=== PATIENT | female | born 1965 | race Caucasian/White ===

== ENCOUNTER 2023-06-25 02:42 | Emergency (ER) | payer OTHER, SELFPAY ==
[2023-06-25] VITALS (14 sets, daily range): BP systolic 111–149; BP diastolic 48–97; BMI 31.9
[2023-06-25 03:58] LABS: % Basophils 1.1 % (0-2); % Immature Granulocytes 0.2 % (0-0.5); % Lymphocytes 37.2 % (20.5-51.1); % Monocytes 7.5 % (1.7-9.3); Absolute Basophils 0.1 10^3/uL (0-0.2); Absolute Eosinophils 0.3 10^3/uL (0-0.7); Absolute Lymphocytes 3.1 10^3/uL (1.2-3.4); Absolute Monocytes 0.6 10^3/uL (0.1-0.6); Absolute Neutrophils 4.3 10^3/uL (1.4-6.5); Hematocrit 34.4 % (37.0-47.0); Hemoglobin 11.2 g/dL (12.0-16.0); Mean Corp Hgb Conc. 32.6 g/dL (33.0-37.0); Mean Corpuscular Hgb 28.3 pg (27.0-31.0); Mean Corpuscular Volume 86.9 fL (81.0-99.0); Mean Platelet Volume 11.3 fL (7.4-10.4); Nucleated Red Blood Cells % 0 %; Platelet Count 189 10^3/uL (130-400); Red Blood Cell Count 3.96 10^6/uL (4.20-5.40); Red Cell Dist. Width 14.5 % (11.5-14.5); White Blood Cell Count 8.4 10^3/uL (4.8-10.8)
[2023-06-25 04:14] LABS: ALT (SGPT) 24 U/L (0-35); AST (SGOT) 31 U/L (14-36); Albumin 3.5 g/dl (3.5-5.0); Alkaline Phosphatase 93 U/L (38-126); Blood Urea Nitrogen 17 mg/dl (7-17); Calcium 8.4 mg/dl (8.4-10.2); Carbon Dioxide 22 mmol/L (22-30); Chloride 110 mmol/L (98-107); Estimated Creatinine Clearance 92 ml/min; Glucose 133 mg/dl (70-99); Potassium 3.5 mmol/L (3.5-5.1); Sodium 145 mmol/L (135-145); Total Bilirubin 0.4 mg/dl (0.2-1.3); Total Protein 5.8 g/dl (6.3-8.2); eGFR > 60.00
[2023-06-25 04:26] LABS: Troponin I < 0.012 ng/ml
[2023-06-25] MEDS: ZOFRAN 4 MG IV (07:26)
[2023-06-25 08:16] LABS: Troponin I < 0.012 ng/ml
--- NOTE | 2023-06-25 08:18 | ED.GENMED ---
History of Present Illness
General
Chief Complaint: Breathing Problem
Source: patient
Exam Limitations: none
Time Seen by Provider: 06/25/23 06:03
Nursing documentation reviewed up to this point in time: agreed with
Travel History
Have you had any contact with someone who has COVID-19?: Yes
Comment: pt thinks so
Do you have any symptoms of coronavirus? Fever > 100 degrees, chills, cough, shortness of breath, sore throat, loss of taste or smell, muscle aches, or headache?: No
History of Present Illness
History of Present Illness:
57-year-old female with a past medical history of alcohol abuse, diabetes, neuropathy who presents to the emergency department for evaluation of chest pain. Patient reportedly initially presented last night for pain in her feet; apparently she was
displeased with the wait time and left the waiting room here and walked to a gas station nearby. There she called EMS to come to the hospital and EMS reports that she told them she had chest pain although she seems to be complaining more of pain in
her feet on my assessment. When asked specifically about chest pain she says 'yeah I am having some pain in my chest.' She says that she has had it since yesterday. She says that it usually improves when she drinks beer. She says she feels some
mild nausea. No vomiting. No abdominal pain. She says she feels some mild shortness of breath. She says she has pain in her feet and she is requesting her dose of Neurontin�she says she has not been able to take it for a few weeks because
someone stole her medication.
Past History
Past History
ED Past Medical History: NIDDM
ED Past Surgical History: Cholecystectomy and
Social History
Tobacco: Non-smoker
Alcohol: Daily
Review of Systems
Review of Systems
All Other Systems: ROS reviewed and negative except as documented in HPI and ROS
Constitutional: Denies fever
Respiratory: Reports trouble breathing
Cardiac: Reports chest pain
ABD/GI: Reports nausea; Denies abdominal pain, vomiting or diarrhea
: Denies flank pain
Musculoskeletal: Reports other (Bilateral foot pain); Denies neck pain or back pain
Neurological: Denies headache
Phy Exam
Physical Exam
Physical Exam:
General: Sleeping in the bed wakes to voice; she appears very comfortable and is not in any distress
Head: Normocephalic, atraumatic
Eyes: Conjunctiva normal, sclera anicteric
Throat: Airway intact, handling secretions
Neck: Trachea midline, supple without meningismus
Lungs: Clear to auscultation bilaterally, no wheezing, rales, rhonchi
Heart: Regular rate and rhythm, no murmurs, gallops, or rubs
Abd: Soft, non distended, nontender
Neuro: Cranial nerves grossly intact, speech fluid
Skin: no rash
Extremities: No edema in extremities, equal pulses in all extremities
Scores
Heart Failure Risk
Heart Failure Risk Score: Not Applicable
Heart Score for Chest Pain Patients
STEMI patient?: No
History: Slightly or Non-Suspicious
ECG: Normal
Age: >45 - <65 years
Risk Factors: 1 or 2 Risk Factors
Troponin: </= Normal Limit
Heart Score for Chest Pain Patients: 2
Heart Score Risk: 2.5% MACE over next 6 weeks
Withdrawal Assessment of Alcohol
Withdrawal Assessment Completed?: Not applicable
Course
Orders/Labs/Results
Orders:
Orders
06/25/23 02:51
EKG [Electrocardiogram (*1)] Urgent
Reason for Study: Tachycardia
EKG- Treatment ONCE
06/25/23 03:39
Complete Blood Count/With Diff Urgent
Comprehensive Metabolic Panel Urgent
Lipase Urgent
Troponin I Urgent
06/25/23 06:06
CR Chest - 2 Views Urgent
Comment:
Reason For Exam: sob
06/25/23 07:23
Ondansetron Injectable [Zofran] 4 mg IV NOW STA
06/25/23 07:24
Ondansetron Injectable [Zofran] 4 mg .ROUTE .STK-MED ONE
06/25/23 07:34
Troponin I Urgent
06/25/23 08:18
Gabapentin [Neurontin] 200 mg PO NOW STA
06/25/23 08:24
Add On- LAB Urgent
Tests Added?: lipase
Pantoprazole [Protonix IV] 40 mg IV NOW STA
Abnormal Lab Results
06/25/23
03:39
RBC 3.96 L 10^6/uL
(4.20-5.40)
Hgb 11.2 L g/dL
(12.0-16.0)
Hct 34.4 L %
(37.0-47.0)
MCHC 32.6 L g/dL
(33.0-37.0)
MPV 11.3 H fL
(7.4-10.4)
Chloride 110 H mmol/L
(98-107)
Glucose 133 H mg/dl
(70-99)
Total Protein 5.8 L g/dl
(6.3-8.2)
06/25/23 03:39
06/25/23 03:39
Vital Signs
Initial and Last Documented VS:
Initial Vital Signs
Temp Pulse Resp BP Pulse Ox
36.6 C 98 12 111/58 96
06/25/23 03:03 06/25/23 03:03 06/25/23 03:03 06/25/23 03:03 06/25/23 03:03
Last Documented Vital Signs
Temp Pulse Resp BP Pulse Ox
36.6 C 107 18 127/67 97
06/25/23 03:03 06/25/23 11:00 06/25/23 11:00 06/25/23 11:00 06/25/23 09:53
MDM/Problems Addressed
Differential Diagnosis Includes:
Chest pain: GERD, costochondritis, anxiety; much lower clinical suspicion for ACS, pulmonary embolism, or dissection
Foot pain: She says this is a chronic issue related to her neuropathy
MDM/Problems Addressed:
57-year-old female presents for evaluation ostensibly of foot pain also apparently complaining of some chest pain although very vague about her symptoms�initially did not report it and then called EMS reporting chest pain and somewhat vague about
her symptoms here. Vital signs are normal here. Exam as above. Plan to place an IV will check labs including a CBC and a CMP, troponins. EKG shows no concerning changes. Will check a chest x-ray. Clinical suspicion for PE very low, in my
judgment no further testing for this diagnosis is indicated based on clinical presentation. Will dose with her home dose of Neurontin. Some Zofran for nausea. Will give PPI�suspect her chest pain is likely GI related given her history of alcohol
use. Monitor closely reassess at the above.
Labs reviewed: CBC shows marginal anemia otherwise unremarkable, CMP within acceptable range. Lipase normal. Troponin negative x 2. Chest x-ray shows no acute pathology. At this point very low suspicion for emergent cause for her chest
pain�suspect likely related to GERD or gastritis in the setting of her alcohol use without somewhat that she reports improvement with alcohol�anxiety also consideration. Symptoms sound very atypical for cardiac chest pain. I think she can
follow-up in outpatient clinic for this. Spoke with patient she is now requesting detox/rehab for alcohol. Discussed with [facility] for assessment. Continue to monitor.
[facility] evaluated patient, plan for placement in detox/rehab facility. Will monitor pending placement.
Chronic conditions affecting care:
Alcohol abuse�at risk for GERD/esophagitis/ulcers
Diabetes�higher risk for ACS
*Radiology
Radiology exam reviewed: radiology read reviewed
*Pulse Oximetry
Patient hypoxic: no
*EKG
Interpreted by ED Provider?: Yes
Heart Rate: 93
Rate: normal
Rhythm: sinus
[place]: normal axis
Interval: normal interval
QRS Pattern: normal QRS
Ischemia: no ischemia
*Critical Care Note
Total Time (30-74mins, 75-104mins- exclusive of procedures): Not Applicable
Data Reviewed
Review of Other/Old Records Reveals: Records
Source: patient, records and ambulance crew
Further Testing Considered But Not Given:
Considered D-dimer as above
Patient Management
Social determinants of health affecting care: Living situation, Substance abuse and Financial situation
Discussion with other providers: Other (Discussed with [facility])
ED Attending Note
-
Portions of this chart may have been created with voice recognition software.� Occasional wrong word or��sound alike� substitutions may have occurred due to the inherent limitations of voice recognition software.
Discharge Plan
Departure
Patient Disposition: Acute Rehab Facility
Date of Disposition: 06/25/23
Time of Disposition: 11:34
Discharge Problem:
Alcoholism, Chest pain, Neuropathy
Instructions: Chest Pain PCP Follow Up
Referrals:
[facility]Outside] - Call in 1-3 days for appt
Interventions
Interventions:
*Risk Screen - Suicide Last Done: 06/25/23 03:03
*General Assessment Last Done: 06/25/23 03:03
*Neglect/Abuse Screening Last Done: 06/25/23 03:03
ED- Fall Risk Assessment Last Done: 06/25/23 03:03
*ED COVID-19 Vaccine History Last Done: 06/25/23 03:03
ED- Cardiac Assessment Last Done: 06/25/23 03:03
ED- Pulmonary Assessment Last Done: 06/25/23 03:03
[2023-06-25 08:56] LABS: Lipase 143 U/L (23-300)
[2023-06-25] MEDS: PROTONIX IV 40 MG IV (09:40)
[2023-06-25] MEDS: NEURONTIN 200 MG PO (09:44)
== END 2023-06-25 14:53 ==
LOC: EMR 02:42
PROVIDERS: Emergency Medicine; EMERGENCY PHYSICIAN Emergency Medicine
DX: R07.89 Other chest pain (principal); F10.20 Alcohol dependence, uncomplicated; E11.40 Type 2 diabetes mellitus with diabetic neuropathy, unspecified
CPT/HCPCS: 99285; 96374; 96375; 71046; 80053; 83690; 84484; 85025; 93005

== ENCOUNTER 2024-02-10 02:02 | Inpatient (IN) | payer OTHER, SELFPAY ==
[2024-02-09 22:11] VITALS: BP 127/91
[2024-02-09 22:18] VITALS: BMI 33.1
--- NOTE | 2024-02-09 22:58 | ED.GENMED ---
History of Present Illness
<STELLA Mendez - Last Filed: 02/10/24 05:39>
General
Chief Complaint: Chest Pain
Source: patient
Time Seen by Provider: 02/09/24 22:58
Nursing documentation reviewed up to this point in time: agreed with
History of Present Illness
History of Present Illness:
Patient is a 58 year old female with a PMH of diabetes presents to the ED complaining of chest pain x 1 week. The pain was described as sharp and rated a 10/10 on a pain scale. The pain does not radiate and was described that it comes and goes.
Nothing makes the pain better or worse, and the patient admits to associated abdominal pain and shortness of breath. The SOB was described as severe and was claimed to have an onset of 1 month. The abdominal pain was described as sharp and also has
an onset of 1 month. Patient denies palpitations, syncope, cough.
Patient has a PMH of diabetes, cholecystectomy, shoulder surgery, and c section. Patient denies any history of LA, arrhythmias, GERD. Patient has a family history of an LA in her father, but denies history of GERD arrhythmias. Patient admits to
drinking for 10 years but denies any illicit drug use and tobacco use. Patient does not take any medications.
Past History
<STELLA Mendez - Last Filed: 02/10/24 05:39>
Past History
ED Past Medical History: NIDDM
ED Past Surgical History: Cholecystectomy and
Social History
Tobacco: Non-smoker
Alcohol: Daily
Review of Systems
<STELLA Mendez - Last Filed: 02/10/24 05:39>
Review of Systems
Respiratory: Reports trouble breathing
Cardiac: Reports chest pain
ABD/GI: Reports abdominal pain
Phy Exam
<STELLA Mendez - Last Filed: 02/10/24 05:39>
General Physical Exam
General Presentation: mild distress
General age: appears stated age
General Habitus: normal
General Mental: confused (was in and out of falling asleep during history )
Cardiovascular Exam
Cardiovascular Exam: no edema, no gallop, no JVD, no murmur and tachycardia
Pulmonary Exam
Pulmonary Exam: lungs clear, no respiratory distress, no rales, chest non tender, no crackles, no rhonchi, no stridor, no wheezing and no cough
Gastrointestinal Exam
Gastrointestinal Exam: normal bowel sounds, non tender, soft, no organomegaly, no pulsatile mass and non distended
Scores
<STELLA Mendez - Last Filed: 02/10/24 05:39>
Heart Score for Chest Pain Patients
STEMI patient?: Not applicable
Course
<STELLA Mendez - Last Filed: 02/10/24 05:39>
Orders/Labs/Results
Orders:
Orders
02/09/24 22:14
EKG [Electrocardiogram (*1)] Urgent
Reason for Study: Chest Pain
EKG- Treatment ONCE
02/09/24 23:30
Complete Blood Count/With Diff Urgent
TSH Urgent
02/09/24 23:51
Alcohol Urgent
Comprehensive Metabolic Panel Urgent
PTT Urgent
Prothrombin Time Urgent
Troponin I Urgent
02/10/24 00:31
Lorazepam [Ativan] 2 mg .ROUTE .STK-MED ONE
02/10/24 00:34
Lorazepam [Ativan] 2 mg IV NOW STA
02/10/24 00:41
Lorazepam [Ativan] 2 mg IV NOW STA
02/10/24 00:42
0.9% Sodium Chloride 1000 ml [Nss] 1,000 ml IV BOLUS
02/10/24 00:44
CT Head W/o Iv Contrast Urgent
Comment:
Reason For Exam: ams, etoh, bruising
02/10/24 01:44
Admit/Transfer Patient As Directed
Co-Sign Provider:
Level of Care: Inpatient admission
Assign to:: IMU- Intermediate Care
Physician / Group: Jem
Diagnosis: Alcohol Withdrawal Syndromes
Reason for Hospitalization: Alcohol Withdrawal Syndromes
Expected length of stay greater than two midnights?: Yes
ELOS- Estimated Length of Stay in days: 3
I certify the patient meets the requirements for IP care: Yes
Phenobarbital Sodium [Phenobarbital] 260 mg 0.9% Sodium Chloride 100 ml [Nss] 100 ml IV NOW
PRN Pain Medication Management As Directed
May give lesser potent ordered pain med per pt: Yes
preference::
Protocol:: Medication orders for pain may be administered in a
manner that supports deferring to patient preference
when the pt is:
- Requesting an ordered lesser potent pain medication.
Least to most potent pain medications are defined
as: acetaminophen < NSAID < tramadol < opioids
(morphine, oxycodone, hydromorphone).
- Requesting a lesser dose of the same medication IF
ORDERED.
- Requesting a less intrusive route of administration
if both routes are prescribed by the provider (PO <
IV).
02/10/24 01:45
Code Status As Directed
Resuscitation Status: Full Code
02/10/24 02:00
0.9% Sodium Chloride 1000 ml [Nss] 1,000 ml Mvi, Adult [Multivitamin] 10 ml Thiamine Injection 100 mg IV 250 mls/hr
02/10/24 03:35
0.9% Sodium Chloride 1000 ml [Nss] 1,000 ml IV 150 mls/hr
0.9% Sodium Chloride [Nss (Preservative Free)] See Protocol IV PRN PRN
Acetaminophen [Tylenol] 650 mg PO Q4HPRN PRN
Dextrose 50%-Water [Dextrose 50% Syringe] 12.5 grams IV [id number] PRN
FOLic ACID [Folvite] 1 mg 0.9% Sodium Chloride 50 ml [Nss] 50 ml IV DAILYPRN
Glucagon [GlucaGen] 1 mg IM PRN PRN
Lorazepam [Ativan] 1 mg IV Q1HPRN PRN
Lorazepam [Ativan] 1 mg PO Q2HPRN PRN
Lorazepam [Ativan] 2 mg IV Q1HPRN PRN
Ondansetron Injectable [Zofran] 4 mg IV Q6HPRN PRN
02/10/24 03:35
Case Management Consult Once
Case Management Consult: Other
Comment: Substance abuse counseling
DIETARY CONSULT Routine
Reason for Consult: Nutrition support, possible refeeding guidelines
Activity As Directed
Activity Level: Ambulate
With Assistance
Bedside Glucose Monitoring As Directed
Frequency: AC&HS
Additional Instructions:: Change to q6h if pt on TPN, tube feeding or not eating
Bladder Scan As Directed
Follow Bladder Retention/Intermittent Cath Algorithm?: Yes
PRN if no void in __ hours: 6
Frequency: Per Retention Algorithm
If Bladder Scan Result >: 400
then:: Straight cath
EKG with chest pain [ECG as needed] As Directed
ECG as needed for:: Chest Pain
I/O [Intake/ Output] As Directed
Frequency: Per unit guidelines
MSAS SCORE As Directed
MSAS Score 0-4: Repeat MSAS every 2 hours until 0-4 for three consecutive assessments, then every 4 hours x 48
hours.
MSAS Score 5-7: For MILD withdrawl symptoms. Repeat MSAS and RASS every 2 hours
MSAS Score 8-11: For MODERATE withdrawal symptoms. Repeat MSAS and RASS every 1 hour. Consider ICU or IMU
level of care.
MSAS Score > 11: For SEVERE withdrawal symptoms. Repeat MSAS and RASS every 1 hour. Notify provider, consider
ICU level of care.
MSAS Additional Instructions: If no improvement or no decrease in score from severe to moderate within 12
hours, consult psychiatry
MSAS Notify Provider: Notify provider if patient requires more than 10 mg of Lorazepam in eight hour period.
Pneumatic Compression Sleeves As Directed
Type: Knee high
Straight Cath As Directed
Frequency: Per Retention Algorithm
Additional Instructions: straight cath as needed per acute urinary retention algorithm for 24 hrs
Additional Instructions: for bladder scan greater than 400 mL
Vital Signs As Directed
Frequency: Per unit guidelines
Weight As Directed
Frequency: Daily
Oxygen Therapy [O2 Therapy] [RESP] Routine
Titrate/Wean O2 to maintain O2 sat greater than (%): 94
Ot Eval And Treat Routine
PT Consult [Pt Eval And Treat] Routine
Activity Level: Ambulate
With Assistance
DX Deep Vein Thrombosis Video Routine
02/10/24 04:27
Urinalysis Routine
Date Specimen was Collected: 02/10/24
Time Specimen was Collected: 04:23
Urine Drug Abuse Screen Routine
Date Specimen was Collected: 02/10/24
Time Specimen was Collected: 04:23
02/10/24 04:30
Basic Metabolic Panel IN AM
LFT [[id number]] IN AM
Magnesium IN AM
Phosphorus IN AM
TSH Reflex To Free T4 Routine
02/10/24 04:37
Troponin I Q6H
02/10/24 06:00
EKG [Electrocardiogram (*1)] IN AM
Reason for Study: Chest Pain
Clear Liquid
At Your Request: Limited Participation
02/10/24 07:30
Insulin Aspart Corrective Low [Novolog Flexpen-Low Resistance] See Protocol SC AC
02/10/24 08:00
FOLic ACID [Folvite] 1 mg PO DAILY
Pantoprazole [Protonix IV] 40 mg IV DAILY
Phenobarbital Sodium [Phenobarbital] 97.5 mg IV TID
Thiamine Injection 200 mg IV Q8
02/10/24 09:35
Troponin I Q6H
02/10/24 15:35
Troponin I Q6H
02/12/24 08:00
Phenobarbital [Luminal] 64.8 mg PO TID
02/13/24 08:00
Thiamine HCl [Vitamin B1] 100 mg PO BID
02/14/24 08:00
Phenobarbital [Luminal] 32.4 mg PO TID
Abnormal Lab Results
02/09/24 02/09/24 02/10/24
23:30 23:51 00:49
RBC 4.00 L 10^6/uL
(4.20-5.40)
Hct 35.0 L %
(37.0-47.0)
RDW 16.5 H %
(11.5-14.5)
Abs Immat Gran (auto) 0.1 H 10^3/uL
(0-0.05)
Immature Gran % 2.2 H %
(0-0.5)
Neutrophils % 39.4 L %
(42.2-75.2)
Sodium 148 H mmol/L
(135-145)
Chloride 113 H mmol/L
(98-107)
Glucose 150 H mg/dl
(70-99)
Total Protein 6.0 L g/dl
(6.3-8.2)
TSH 0.28 L uIU/ml
(0.47-4.68)
POC Glucose 138 H mg/dl
(70-99)
02/09/24 23:30
02/09/24 23:51
Vital Signs
Initial and Last Documented VS:
Initial Vital Signs
BP
127/91
02/09/24 22:11
Last Documented Vital Signs
Temp Pulse Resp BP Pulse Ox
98.4 F 99 14 129/79 96
02/10/24 05:31 02/10/24 04:00 02/10/24 04:00 02/10/24 04:00 02/10/24 04:11
<Mikel Ponce, DO - Last Filed: 02/10/24 01:33>
Orders/Labs/Results
Orders:
Orders
02/09/24 22:14
EKG [Electrocardiogram (*1)] Urgent
Reason for Study: Chest Pain
EKG- Treatment ONCE
02/09/24 23:30
Complete Blood Count/With Diff Urgent
TSH Urgent
02/09/24 23:51
Alcohol Urgent
Comprehensive Metabolic Panel Urgent
PTT Urgent
Prothrombin Time Urgent
Troponin I Urgent
02/10/24 00:31
Lorazepam [Ativan] 2 mg .ROUTE .STK-MED ONE
02/10/24 00:34
Lorazepam [Ativan] 2 mg IV NOW STA
02/10/24 00:41
Lorazepam [Ativan] 2 mg IV NOW STA
02/10/24 00:42
0.9% Sodium Chloride 1000 ml [Nss] 1,000 ml IV BOLUS
02/10/24 00:44
CT Head W/o Iv Contrast Urgent
Comment:
Reason For Exam: ams, etoh, bruising
02/10/24 01:44
Admit/Transfer Patient As Directed
Co-Sign Provider:
Level of Care: Inpatient admission
Assign to:: IMU- Intermediate Care
Physician / Group: Jem
Diagnosis: Alcohol Withdrawal Syndromes
Reason for Hospitalization: Alcohol Withdrawal Syndromes
Expected length of stay greater than two midnights?: Yes
ELOS- Estimated Length of Stay in days: 3
I certify the patient meets the requirements for IP care: Yes
Phenobarbital Sodium [Phenobarbital] 260 mg 0.9% Sodium Chloride 100 ml [Nss] 100 ml IV NOW
PRN Pain Medication Management As Directed
May give lesser potent ordered pain med per pt: Yes
preference::
Protocol:: Medication orders for pain may be administered in a
manner that supports deferring to patient preference
when the pt is:
- Requesting an ordered lesser potent pain medication.
Least to most potent pain medications are defined
as: acetaminophen < NSAID < tramadol < opioids
(morphine, oxycodone, hydromorphone).
- Requesting a lesser dose of the same medication IF
ORDERED.
- Requesting a less intrusive route of administration
if both routes are prescribed by the provider (PO <
IV).
02/10/24 01:45
Code Status As Directed
Resuscitation Status: Full Code
02/10/24 02:00
0.9% Sodium Chloride 1000 ml [Nss] 1,000 ml Mvi, Adult [Multivitamin] 10 ml Thiamine Injection 100 mg IV 250 mls/hr
02/10/24 03:35
0.9% Sodium Chloride 1000 ml [Nss] 1,000 ml IV 150 mls/hr
0.9% Sodium Chloride [Nss (Preservative Free)] See Protocol IV PRN PRN
Acetaminophen [Tylenol] 650 mg PO Q4HPRN PRN
Dextrose 50%-Water [Dextrose 50% Syringe] 12.5 grams IV [id number] PRN
FOLic ACID [Folvite] 1 mg 0.9% Sodium Chloride 50 ml [Nss] 50 ml IV DAILYPRN
Glucagon [GlucaGen] 1 mg IM PRN PRN
Lorazepam [Ativan] 1 mg IV Q1HPRN PRN
Lorazepam [Ativan] 1 mg PO Q2HPRN PRN
Lorazepam [Ativan] 2 mg IV Q1HPRN PRN
Ondansetron Injectable [Zofran] 4 mg IV Q6HPRN PRN
02/10/24 03:35
Case Management Consult Once
Case Management Consult: Other
Comment: Substance abuse counseling
DIETARY CONSULT Routine
Reason for Consult: Nutrition support, possible refeeding guidelines
Activity As Directed
Activity Level: Ambulate
With Assistance
Bedside Glucose Monitoring As Directed
Frequency: AC&HS
Additional Instructions:: Change to q6h if pt on TPN, tube feeding or not eating
Bladder Scan As Directed
Follow Bladder Retention/Intermittent Cath Algorithm?: Yes
PRN if no void in __ hours: 6
Frequency: Per Retention Algorithm
If Bladder Scan Result >: 400
then:: Straight cath
EKG with chest pain [ECG as needed] As Directed
ECG as needed for:: Chest Pain
I/O [Intake/ Output] As Directed
Frequency: Per unit guidelines
MSAS SCORE As Directed
MSAS Score 0-4: Repeat MSAS every 2 hours until 0-4 for three consecutive assessments, then every 4 hours x 48
hours.
MSAS Score 5-7: For MILD withdrawl symptoms. Repeat MSAS and RASS every 2 hours
MSAS Score 8-11: For MODERATE withdrawal symptoms. Repeat MSAS and RASS every 1 hour. Consider ICU or IMU
level of care.
MSAS Score > 11: For SEVERE withdrawal symptoms. Repeat MSAS and RASS every 1 hour. Notify provider, consider
ICU level of care.
MSAS Additional Instructions: If no improvement or no decrease in score from severe to moderate within 12
hours, consult psychiatry
MSAS Notify Provider: Notify provider if patient requires more than 10 mg of Lorazepam in eight hour period.
Pneumatic Compression Sleeves As Directed
Type: Knee high
Straight Cath As Directed
Frequency: Per Retention Algorithm
Additional Instructions: straight cath as needed per acute urinary retention algorithm for 24 hrs
Additional Instructions: for bladder scan greater than 400 mL
Vital Signs As Directed
Frequency: Per unit guidelines
Weight As Directed
Frequency: Daily
Oxygen Therapy [O2 Therapy] [RESP] Routine
Titrate/Wean O2 to maintain O2 sat greater than (%): 94
Ot Eval And Treat Routine
PT Consult [Pt Eval And Treat] Routine
Activity Level: Ambulate
With Assistance
DX Deep Vein Thrombosis Video Routine
02/10/24 04:27
Urinalysis Routine
Date Specimen was Collected: 02/10/24
Time Specimen was Collected: 04:23
Urine Drug Abuse Screen Routine
Date Specimen was Collected: 02/10/24
Time Specimen was Collected: 04:23
02/10/24 04:30
Basic Metabolic Panel IN AM
LFT [[id number]-[id number]-Sjgmflq] IN AM
Magnesium IN AM
Phosphorus IN AM
TSH Reflex To Free T4 Routine
02/10/24 04:37
Troponin I Q6H
02/10/24 06:00
EKG [Electrocardiogram (*1)] IN AM
Reason for Study: Chest Pain
Clear Liquid
At Your Request: Limited Participation
02/10/24 07:30
Insulin Aspart Corrective Low [Novolog Flexpen-Low Resistance] See Protocol SC AC
02/10/24 08:00
FOLic ACID [Folvite] 1 mg PO DAILY
Pantoprazole [Protonix IV] 40 mg IV DAILY
Phenobarbital Sodium [Phenobarbital] 97.5 mg IV TID
Thiamine Injection 200 mg IV Q8
02/10/24 09:35
Troponin I Q6H
02/10/24 15:35
Troponin I Q6H
02/12/24 08:00
Phenobarbital [Luminal] 64.8 mg PO TID
02/13/24 08:00
Thiamine HCl [Vitamin B1] 100 mg PO BID
02/14/24 08:00
Phenobarbital [Luminal] 32.4 mg PO TID
Abnormal Lab Results
02/09/24 02/09/24 02/10/24
23:30 23:51 00:49
RBC 4.00 L 10^6/uL
(4.20-5.40)
Hct 35.0 L %
(37.0-47.0)
RDW 16.5 H %
(11.5-14.5)
Abs Immat Gran (auto) 0.1 H 10^3/uL
(0-0.05)
Immature Gran % 2.2 H %
(0-0.5)
Neutrophils % 39.4 L %
(42.2-75.2)
Sodium 148 H mmol/L
(135-145)
Chloride 113 H mmol/L
(98-107)
Glucose 150 H mg/dl
(70-99)
Total Protein 6.0 L g/dl
(6.3-8.2)
TSH 0.28 L uIU/ml
(0.47-4.68)
POC Glucose 138 H mg/dl
(70-99)
02/09/24 23:30
02/09/24 23:51
Vital Signs
Initial and Last Documented VS:
Initial Vital Signs
BP
127/91
02/09/24 22:11
Last Documented Vital Signs
Temp Pulse Resp BP Pulse Ox
98.4 F 99 14 129/79 96
02/10/24 05:31 02/10/24 04:00 02/10/24 04:00 02/10/24 04:00 02/10/24 04:11
Estephanielt;Mikel Ponce, DO - Last Filed: 02/10/24 01:33>
MDM/Problems Addressed
Differential Diagnosis Includes:
Alcohol withdrawal, alcohol withdrawal seizures
Chronic conditions affecting care:
Chronic alcoholism
Chronic conditions affecting care: DM
Acute Exacerbation and/or Progression of Chronic Illness: DM
<STELLA Mendez - Last Filed: 02/10/24 05:39>
*Critical Care Note
Total Time (30-74mins, 75-104mins- exclusive of procedures): Not Applicable
<Mikel Ponce DO - Last Filed: 02/10/24 01:33>
*Radiology
Radiology exam reviewed: radiology read reviewed
*Pulse Oximetry
Patient hypoxic: no
*Critical Care Note
Total Time (30-74mins, 75-104mins- exclusive of procedures): 45
comment:
Critical care statement: A total of 45 minutes of critical care time was provided for this patient. This time is separate from time utilized to perform the aforementioned documented procedures. Aggregate critical care time includes only time
during which I was engaged in work directly related to the patient's care, as described above, whether at the bedside or elsewhere in the Emergency Department.
ED Attending Note
<STELLA Mendez - Last Filed: 02/10/24 05:39>
-
Portions of this chart may have been created with voice recognition software.� Occasional wrong word or��sound alike� substitutions may have occurred due to the inherent limitations of voice recognition software.
<Mikel Ponce DO - Last Filed: 02/10/24 01:33>
ED Attending Note
Patient seen and examined by attending physician: Yes
I performed the substantive portion of visit, reviewed & personally made and approve the management plan that is documented in note by myself or JOSE.: Yes
ED Attending Note:
This a 58-year-old female who presents with chest pain that has been present this week. She states that the pain is sharp and does not radiate. She reports that it is intermittent in nature. Patient also reports some abdominal pain and shortness
of breath. She states that the shortness of breath began approximate 1 month ago. Patient admits to drinking alcohol this evening. Patient was seen in conjunction with the PA student. I have reviewed and agree with the history and treatment plan
presented. On my independent physical exam, patient is awake, alert, and oriented x3. Patient admits to being intoxicated. Heart is regular rate and rhythm. Lungs are clear to auscultation bilaterally with no wheezes rales or rhonchi present.
Skin is warm and dry. She moves all 4 extremities.
Patient had 2 seizures while in the emergency department. She was given Ativan each time. Patient to be admitted to the hospital service for alcohol withdrawal with seizures.
Discharge Plan
Departure
Patient Disposition: Admit
Date of Disposition: 02/10/24
Time of Disposition: 01:32
Admit to: ICU
Presentation/result/management discussed w/ accepting MD/DO: Hospitalist
Condition: Fair
Discharge Problem:
Alcohol withdrawal, Alcohol intoxication, Alcohol withdrawal seizure
Interventions
Interventions:
*Risk Screen - Suicide Last Done: 02/09/24 22:12
*General Assessment Last Done: 02/09/24 22:12
*Neglect/Abuse Screening Last Done: 02/09/24 22:12
ED- Fall Risk Assessment Last Done: 02/10/24 03:41
*ED COVID-19 Vaccine History Last Done: 02/09/24 22:12
*Nursing Disposition Last Done: 02/10/24 03:41
ED- Cardiac Assessment Last Done: 02/09/24 22:19
Discharge Date and Time
Discharge Date/Time: 02/10/24 03:41
[2024-02-09 23:55] LABS: Hemoglobin 12.2 g/dL (12.0-16.0); Mean Corp Hgb Conc. 34.9 g/dL (33.0-37.0); Mean Corpuscular Hgb 30.5 pg (27.0-31.0); Mean Corpuscular Volume 87.5 fL (81.0-99.0); Red Cell Dist. Width 16.5 % (11.5-14.5)
[2024-02-10] VITALS (13 sets, daily range): BP systolic 113–153; BP diastolic 77–98; PULSE 112; O2SAT 98; BMI 31.8; BMI 31.7
[2024-02-10 00:05] LABS: INR 0.93; PT 12.2 Sec (11.4-14.6)
[2024-02-10 00:06] LABS: APTT 27.1 Sec (23.4-35.0)
[2024-02-10 00:11] LABS: ALT (SGPT) 32 U/L (0-35); AST (SGOT) 33 U/L (14-36); Albumin 3.7 g/dl (3.5-5.0); Alcohol 180 mg/dl; Alkaline Phosphatase 63 U/L (38-126); Blood Urea Nitrogen 15 mg/dl (7-17); Calcium 9.1 mg/dl (8.4-10.2); Carbon Dioxide 25 mmol/L (22-30); Chloride 113 mmol/L (98-107); Estimated Creatinine Clearance 108 ml/min; Glucose 150 mg/dl (70-99); Potassium 4.2 mmol/L (3.5-5.1); Sodium 148 mmol/L (135-145); Total Bilirubin 0.4 mg/dl (0.2-1.3); eGFR > 60.00
[2024-02-10 00:16] LABS: % Basophils 1.3 % (0-2); % Eosinophils 2.8 % (0-6); % Immature Granulocytes 2.2 % (0-0.5); % Lymphocytes 47.9 % (20.5-51.1); % Monocytes 6.4 % (1.7-9.3); % Neutrophils 39.4 % (42.2-75.2); Absolute Basophils 0.1 10^3/uL (0-0.2); Absolute Eosinophils 0.2 10^3/uL (0-0.7); Absolute Immature Granulocytes 0.1 10^3/uL (0-0.05); Absolute Lymphocytes 2.9 10^3/uL (1.2-3.4); Absolute Monocytes 0.4 10^3/uL (0.1-0.6); Absolute Neutrophils 2.4 10^3/uL (1.4-6.5); Nucleated Red Blood Cells % 0 %
[2024-02-10 00:25] LABS: TSH 0.28 uIU/ml (0.47-4.68)
[2024-02-10] MEDS: ATIVAN 2 MG IV ×2 (00:35→00:41)
[2024-02-10] MEDS: NSS 1000 IV ×3 (00:43→12:41)
[2024-02-10 00:53] LABS: Glucose - Point of Care 138 mg/dl (70-99)
[2024-02-10] MEDS: MULTIVITAMIN 1011 ML IV (01:30)
[2024-02-10] MEDS: MULTIVITAMIN 1011 MG IV (01:30)
--- NOTE | 2024-02-10 01:47 | HPS.HSE ---
Family Physician
-
Family Physician: * NONE
Chief Complaint
-
Feel sick
History of Present Illness
Patient is a 58y F with PMH significant for DM, migraines and depression who presents to ED complaining of 'alcohol withdrawal'. Patient states that she has felt shaky, short of breath and complains of chest tightness / pain. Patient was
evaluated in the ED this evening. She was reportedly noted to have two episodes of seizure activity in the ED and received IV Ativan each time with improvement in her symptoms. Patient denies any prior history of withdrawal seizures or other
seizure activity.
She states that she drinks 15-30 beers daily and her last drink was Thursday.
She has been in alcohol rehab in the past - most recently in October 2023.
At the time of my examination patient is quite tremulous and states ' I feel like I am having a seizure' - but she is clearly awake, alert and communicative.
Medical History
Past Medical History
Past Medical History: Reports Other
Additional Past Medical History:
Alcohol Use Disorder
DM-II
Migraine Headaches
Bipolar Depression
Obesity
Past Surgical History: Reports Other
Additional Past Surgical History:
R Shoulder Surgery
Social History
Tobacco: Smoker (Current every day smoker. Approx 30 pack years total.)
Alcohol: Daily (15-30 beers daily.)
Drug: None
Family History
Family History: Other (Father: CAD)
Allergies / Home Medications
Allergies reflects when Allergies were last updated in [facility].
Home Medications with original date entered in [facility]
Allergy/Medication List:
Allergies
Allergy/AdvReac Type Severity Reaction Status Date / Time
codeine Allergy Unknown Verified 02/09/24 22:11
Home Medications
Wellbutrin SR 02/10/24
metformin 500 mg tablet 500 mg PO BIDWMEAL 02/10/24
topiramate 200 mg tablet (Topamax) 200 mg PO BID 02/10/24
This is a partial list - only what [facility] [employer] could recall.
Review of Systems
-
History Source: Patient
A 12 point ROS was completed and negative except as noted: Yes
Constitutional: Reports Fatigue and Chills; Denies Fever
EENT: Denies Sore Throat
Respiratory: Reports Trouble Breathing; Denies Cough
Cardiac: Reports Chest Pain; Denies Diaphoresis or Palpitations
Abdomen/GI: Reports Nausea and Vomiting; Denies Abdominal Pain, Diarrhea or Constipated
: Denies Dysuria, Frequency or Flank Pain
Musculoskeletal: Denies Joint Pain or Edema
Neurological: Reports Dizzy and Headache
Psych: Reports Depression and Anxiety
Physical Exam
Vital Signs
Vital Signs
Temp Pulse Resp BP Pulse Ox
98.0 F 109 29 113/80 96
02/09/24 22:19 02/10/24 01:36 02/10/24 01:36 02/10/24 01:36 02/10/24 01:36
Physical Exam
General: Other (58y F in mild distress due to tremulousness and anxiety.)
HEENT: Other (Thick neck, dry MM.)
Respiratory: Other (Decreased BS at bases - otherwise clear.)
Cardiac: S1/S2 and Regular Rhythm; No Murmur
GI: Soft, Non Tender, Non Distended and Normal Bowel Sounds
Musculoskeletal: No Clubbing, No Cyanosis and No Edema
Neuro: Awake, Alert, Oriented and Other (Generalized tremulousness. )
Psych: Anxious
Laboratory Results
-
02/09/24 23:30
02/09/24 23:51
Laboratory Results
PT 12.2 Sec (11.4-14.6) 02/09/24 23:51
INR 0.93 02/09/24 23:51
APTT 27.1 Sec (23.4-35.0) 02/09/24 23:51
Total Bilirubin 0.4 mg/dl (0.2-1.3) 02/09/24 23:51
AST 33 U/L (14-36) 02/09/24 23:51
ALT 32 U/L (0-35) 02/09/24 23:51
Alkaline Phosphatase 63 U/L (38-126) 02/09/24 23:51
Troponin I 0.020 ng/ml 02/09/24 23:51
Impression/Plan
-
A/P: Patient is a 58y F with PMH significant for DM-II and alcohol use disorder who presents to ED complaining of chest pain, dyspnea, tremulousness and nausea.
Acute Alcohol Withdrawal Syndrome
Alcohol Use Disorder
- Admit for further evaluation and treatment.
- Questionable seizure activity in the ED, but clearly tremulous / in active withdrawal.
- Phenobarbital taper.
- MSAS / withdrawal protocol.
- Thiamine, folate, MVI replacement, etc.
- IVFs support. Monitor lytes and replace / replete as needed.
- Follow for clinical improvement.
Non-[place] Troponin Elevation
- Troponin minimally elevated at 0.02. EKG is unremarkable without evidence for active ischemia.
- Suspect non-ischemic myocardial injury.
- Follow troponin to peak. Monitor for any new / worsening symptoms
- Follow serial EKGs for any changes.
- Consider Cardiology evaluation if worsening symptoms or significantly rising troponin.
DM-II
- Stable. Follow glucose and cover with SSI as needed.
- Hold metformin acutely.
- Update A1C.
Bipolar Depression
Migraine Headaches
- Hold home meds for now while on phenobarbital and pending formal med rec in the AM.
DVT Prophylaxis: SCDs
Code Status: Full
[2024-02-10] MEDS: PHENOBARBITAL 104 MG IV (02:14)
[2024-02-10] MEDS: ATIVAN 1 MG PO ×2 (04:49→10:02)
[2024-02-10 04:57] LABS: Urine Albumin Negative (Neg - Trace); Urine Bilirubin Negative (Negative); Urine Character Clear (Clear); Urine Color Yellow; Urine Glucose Negative (Negative); Urine Ketone Negative (Negative); Urine Leukocyte Negative (Negative); Urine Nitrite Negative (Negative); Urine Occult Blood Negative (Negative); Urine Specific Gravity 1.025 (<1.030); Urine Urobilinogen Negative (Neg - 1+)
[2024-02-10 05:15] LABS: Amphetamines Negative (Negative); Barbiturates Positive (Negative); Benzodiazepines Positive (Negative); Buprenorphine Negative (Negative); Cocaine Negative (Negative); Marijuana Negative (Negative); Methadone Negative (Negative); Methamphetamines Negative (Negative); Opiates Negative (Negative); Phencyclidine Negative (Negative); Tricyclic Antidepressants Negative (Negative)
[2024-02-10 05:18] LABS: ALT (SGPT) 30 U/L (0-35); AST (SGOT) 32 U/L (14-36); Albumin 3.5 g/dl (3.5-5.0); Alkaline Phosphatase 63 U/L (38-126); Blood Urea Nitrogen 15 mg/dl (7-17); Calcium 8.5 mg/dl (8.4-10.2); Carbon Dioxide 23 mmol/L (22-30); Chloride 114 mmol/L (98-107); Direct Bilirubin 0.3 mg/dl (0.0-0.4); Estimated Creatinine Clearance 108 ml/min; Glucose 127 mg/dl (70-99); Magnesium 1.8 mg/dl (1.6-2.3); Phosphorus 3.6 mg/dl (2.5-4.5); Sodium 147 mmol/L (135-145); Total Bilirubin 0.4 mg/dl (0.2-1.3); Total Protein 5.8 g/dl (6.3-8.2); eGFR > 60.00
[2024-02-10 05:30] LABS: Fentanyl, Urine Negative (Negative)
[2024-02-10 05:32] LABS: TSH Reflex To Free T4 0.42 uIU/ml (0.47-4.68)
[2024-02-10 06:02] LABS: Free T4 0.93 ng/dl (0.78-2.19)
--- NOTE | 2024-02-10 06:50 | PTCARENOTE ---
New admission overnight. aaox3, tearful, anxious, flat affect. MSAS protocol, scoring 2-5 so far. Ativan prn. Tremors, restless, drowsy at times. NSR. Bedrest for now. MASD under b/l breasts. c/o pain in legs d/t neuropathy. NO other issues. will
monitor.
[2024-02-10] MEDS: FOLVITE 1 MG PO (08:06)
[2024-02-10] MEDS: PROTONIX IV 40 MG IV (08:07)
[2024-02-10] MEDS: THIAMINE INJECTION 200 MG IV (08:11)
[2024-02-10] MEDS: PHENOBARBITAL 97.5 MG IV (08:12)
[2024-02-10] MEDS: DESENEX/MITRAZOL/ZEASORB 1 APPLIC TOPICAL (08:14)
[2024-02-10 08:19] LABS: Glucose - Point of Care 125 mg/dl (70-99)
--- NOTE | 2024-02-10 10:06 | PTCARENOTE ---
received patient from night shift supervisor. Patient is drowsy but awakes and answers to name. Patient is AX3. MSAS scores for the morning were 4-5. 1 mg Ativan given for score of 5. Patient has mild tremors and states being very fatigued. Call gonzales is within
reach and will continue to monitor.
[2024-02-10 11:41] LABS: Hematocrit 32.8 % (37.0-47.0); Hemoglobin 10.7 g/dL (12.0-16.0); Mean Corp Hgb Conc. 32.6 g/dL (33.0-37.0); Mean Corpuscular Hgb 30.1 pg (27.0-31.0); Mean Corpuscular Volume 92.1 fL (81.0-99.0); Mean Platelet Volume 10.4 fL (7.4-10.4); Platelet Count 122 10^3/uL (130-400); Red Blood Cell Count 3.56 10^6/uL (4.20-5.40); Red Cell Dist. Width 16.3 % (11.5-14.5); White Blood Cell Count 7.4 10^3/uL (4.8-10.8)
[2024-02-10 12:16] LABS: Troponin I 0.013 ng/ml
--- NOTE | 2024-02-10 12:22 | CM ---
Addendum entered by Christiana Moses RN 02/10/24 15:16:
Spoke with Adina Wray and Natalia;
patient was evaluated and is cleared for discharge.
Met with patient who plans on returning to the [facility] in [place] by taxi. Patient states she called a taxi who will pick her up in an hour. Patient states she has a credit card and gets income from [employer]. She does not want any resources for
housing.
Plan discharge today to [facility] by taxi.
Original Note:
Patient who is homeless with Hx Bipolar DO & Depression with Dx Acute Alcohol Withdrawal Syndrome, Alcohol Use Disorder, possible Seizures. Tox screen + alcohol 180, barbs, benzos. O2 2L. MSAS 2. Per nursing; drowsy.
Met with patient who was oriented and able to converse somewhat however keep falling asleep during the assessment.
The patient says she has been homeless for 3 years, mostly living 'in the [facility]'.
She has been staying in a hotel called [facility] in [place] however the only [facility] motels online are in [facility] [place].
The patient says she is independent in ADLs and ambulates independently.
Patient provides contact: Brenda Cash, David luque ([place] or [place] -state?) ph [phone].
CM Consult: Substance Abuse
Noting in H&P: She states that she drinks 15-30 beers daily and her last drink was Thursday. She has been in alcohol rehab in the past - most recently in October 2023.
Patient agreed to speak with [place].
She was too sedated to have further conversation at this time.
Spoke with WASHINGTON Roberts; Ramana will contact the patient tomorrow when she is more awake.
Phone call to Brenda Cash, David luque (ph [phone]); left message requesting callback.
Plan follow up after seen by WASHINGTON.
[2024-02-10 12:55] LABS: Glucose - Point of Care 123 mg/dl (70-99)
[2024-02-10 13:16] LABS: Glycohemoglobin (HgbA1c) 5.9 % (4.0-5.6)
--- NOTE | 2024-02-10 14:42 | W.PN.HOSP.TC ---
Addendum entered and electronically signed by Brenda Fisher MD 02/10/24 19:00:
I saw and evaluated the patient independently. I reviewed the resident�s note and agree with findings and plan as documented by Dr. Ellison.
GENERAL: well developed, well nourished, female in no apparent distress--lethargic initially but then more awake later in the afternoon
HEENT: NC/AT--O2 NC in place
HEART: regular rate and rhythm, +S1, +S2
LUNGS : clear to auscultation bilaterally
ABDOM: soft, nontender, nondistended, + bowel sounds
EXT: no cyanosis, clubbing, or edema
NEUROLOGIC: mild tremors
Acute Alcohol Withdrawal Syndrome with Alcohol Use Disorder--just got out of rehab in October--follow-up MSAS--continue thiamine, folate, multivitamin repletion--wean O2 as able--continue phenobarbital and Ativan as needed
Non ischemic myocardial injury troponin Elevation--troponin 0.02 down to 0.013--EKG without ischemia
DM-II - Stable. Follow glucose and cover with SSI as needed- Hold metformin acutely--hemoglobin A1c 5.9
Bipolar Depression/Migraine Headaches - Hold home meds for now
DVT Prophylaxis: SCDs
Code Status: Full
Patient awake in the afternoon, called to see patient as wishes to leave AGAINST MEDICAL ADVICE--arrived at patient's bedside and asked for urgent psych consult to determine capacity given acute alcohol withdrawal--psychiatry did see the patient and
cleared for discharge from psychiatric point of view but patient is signing out AGAINST MEDICAL ADVICE as she should stay in the hospital to continue treatment
Time for discharge = 40 minutes
Original Note:
Today's Communication/Plan
-
monitor for withdrawal symptoms
Assessment / Plan
Assessment / Plan
A/P: Patient is a 58y F with PMH significant for DM-II and alcohol use disorder who presents to ED complaining of chest pain, dyspnea, tremulousness and nausea.
Acute Alcohol Withdrawal Syndrome
Alcohol Use Disorder
MSAS score this am 4
ativan per MSAS protocol
Phenobarbital taper.
MSAS / withdrawal protocol.
Thiamine, folate, MVI replacement, etc.
IVFs support. Monitor lytes and replace / replete as needed.
Follow for clinical improvement.
Non-CA Troponin Elevation
Troponin minimally elevated at 0.02. EKG is unremarkable without evidence for active ischemia.
Troponins peaked at 0.02 and downtrended
DM-II
- Stable. Follow glucose and cover with SSI as needed.
- Hold metformin acutely.
Bipolar Depression
Migraine Headaches
- Hold home meds for now while on phenobarbital and pending formal med rec in the AM.
AMA discharge
Patient decided to leave AMA after discussion of risk and need for continuation of hospitalization
Psych was consulted and decided that the patient had no psychiatric issues that preclude her from making her own medical decisions
Pt signed AMA form
DVT Prophylaxis: SCDs
Code Status: Full
Anticipated Discharge: Today
Subjective/Interval History
-
Date of Service: February 10, 2024
[facility] this am 4
Objective Data
-
Labs:
Laboratory Results
02/10/24 02/10/24
04:30 11:32
WBC Cancelled 7.4
Hgb Cancelled 10.7 L
Hct Cancelled 32.8 L
Plt Count Cancelled 122 L
Sodium 147 H
Potassium 4.0
Chloride 114 H
Carbon Dioxide 23
BUN 15
Creatinine 0.5 L
Glucose 127 H
Calcium 8.5
Total Bilirubin 0.4
AST 32
ALT 30
Alkaline Phosphatase 63
Vital Signs:
Vital Signs
Temp Pulse Resp BP Pulse Ox
98.0 F 102 15 145/84 98
02/10/24 07:20 02/10/24 12:00 02/10/24 12:00 02/10/24 12:00 02/10/24 12:00
I&O
02/09/24 02/10/24 02/11/24
06:59 06:59 06:59
Intake Total 240 / 240
Balance 240 / 240
Review of Systems
-
Unable to obtain full review of systems at this time due to: Other (patient too sedated to speak at time of interview)
Physical Exam
-
General: No Apparent Distress, Comfortable and Obese
Respiratory: Clear to Auscultation
Cardiac: Regular Rhythm and S1/S2
GI: Soft, Nontender, Nondistended and Normal Bowel Sounds
Data Reviewed
-
Labs: Labs Reviewed by me and Discussed with Physician
--- NOTE | 2024-02-10 14:46 | PTCARENOTE ---
Patient stating they want to leave the hospital and also stated to stop giving her IV fluids. Physician notified and came to bedside. Explained that patient is not medically stable to leave the hospital because of active withdraw but patient is
still insisting on leaving. Psychology was notified and at bedside to determine if patient is able to make own decisions. Continuing to monitor.
--- NOTE | 2024-02-10 15:04 | W.PN.UPDATE ---
Update Note
Progress Note Update
patient seen chart reviewed. spoke with dr reyes. this consult was ordered for competence re signing out ama. the patient is a 58 year old woman admitted for chest pain. she was thought to be at risk for etoh wd as she has a long hx of etoh
abuse. she was in etoh rehab in october then [facility] then insurance stopped covering. she was homeless and found help through a local agency and is now housed at the [facility] where she wishes to return. she was on
phenobarb detox and msas protocol. last bp 145/84 she received two mg ativan today as per msas. the patient tells me her check is coming in shortly and she will be able to find housing shortly. she has been drinking s olivia age 13. she has had very
long periods of sobriety 18 year and 14 years. she has been mostly sober for the past three years but gambling debts caused a lot of stress and estrangement from her family. she hopes to reconcile w them. she denied depression and si at this point.
she feels meds help her. she is taking wellbutrin topamax and gabapentin for neuropathy. sleep and appetite are fair. she says she is capable of caring for herself. nothing to suggest psychosis. she has never experienced sz in wd. she said she
sometimes gets tremulous and sweaty but does not believe she has ever been in serious danger medically from detox.
past psych hx no hx suicide attempts.denies hx psych hospitalization. has been in rehab for etoh abuse. current meds as above.
medical hx niddm shoulder surgery bal on admit 180 anemia 10.7 a1c 5.9 sodium on the high side 147 metformin for dm. ecg w qtc 418 abnormal patient no c/o chest pain.
fh denied
substance abuse see above etlh
social hx three kids all in college and doing well. homeless currently estranged from family.
mse alert ox3 cooperative speech and thought process nl no psychosis mood is neutral affect ok no si aver intelligene insight and judgment fair in some ways although remaining in hosp would be a better decision. that said she has managed to get
self hooked up with an agency to help her and is getting her ss payments reinstated
dx etoh use disorder unspec mood disorder
recommendations patient is not psychotic. she is not acutely affectively ill. she knows the consequences of leaving ama given her medical issues and is competent to make that decision. she recognizes the seriousnesss if she would go into d
t's...she says her goal is sobriety and she is committed to it. she says if she has medical issues she will return to er.
--- NOTE | 2024-02-10 15:16 | PTCARENOTE ---
Patient signed out of hospital AMA and signed form. Security walked with her out of the hospital.
--- NOTE | 2024-02-10 15:26 | W.DCSUMMARY ---
Addendum entered and electronically signed by Brenda Fisher MD 02/10/24 19:02:
Read, reviewed, and agree. See same day progress note for additional details. Time spent coordinating care, DC planning, review of DC plan of care with resident, transition of care, review of records in EMR, med rec, consults, notes, d/w
consultants, nursing, family, and CM = 40 minutes
Original Note:
Discharge Summary
Discharge Data
Date of Admission: 02/10/24
Date of Discharge: 02/10/24
-
Pending Results: No
Hospital Course
Discharging Physician : Natalia Ellison
Disposition : AGAINST MEDICAL ADVICE
Primary care physician : Unknown
Principal Discharge diagnosis : Alcohol withdrawal
Chronic Discharge diagnosis : Diabetes mellitus type 2, bipolar depression
Hospital Course : 58 female past medical history significant for diabetes and alcohol use disorder presents to the ED complaining of chest pain shortness of breath and nausea. Patient admits to drinking 15-30 beers per day and could not keep beer
down. Alcohol levels on admission was 180. Patient was admitted to IMU for alcohol withdrawal and placed on high risk phenobarbital taper and MSAs protocol with Ativan as needed. During the first day of her stay patient was too sedated to speak
to primary team during rounds. Later in the day patient became more alert and began threatening to leave AGAINST MEDICAL ADVICE. Patient was spoken to and primary team discussed the risks of leaving AGAINST MEDICAL ADVICE including seizures and
potential from alcohol withdrawal. Patient said she did not care and wanted to leave AGAINST MEDICAL ADVICE. Psychiatry was consulted to evaluate the patient for capacity and potential 302. Psychiatry evaluated the patient and as she is not
acutely psychotic or affectively ill she is able to make her own medical decisions. Patient understood the consequences of leaving AGAINST MEDICAL ADVICE she recognized the seriousness if she would go into delirium tremens and she told psychiatry
that her goal is sobriety and she is committed to it. Patient says if she has medical issues she will turn to the [place] emergency department. Patient signed AGAINST MEDICAL ADVICE form once risks were discussed including seizure, delirium
tremens and potential . Patient left AGAINST MEDICAL ADVICE.
Important imaging findings : 02/10/[address], impression:
There are no focal or acute intracranial abnormalities.
There is mild diffuse cortical atrophy.
Procedure findings : No procedures
Discharge Plan
-
Patient Disposition: Against Medical Advice
Discharge Diagnosis/Procedures: alcohol withdrawal, diabetes, alcohol use disorder
Condition: Fair
Diet: As tolerated
Activity: As tolerated
Driving Restrictions: No driving
Bathing Restrictions: None
Referrals:
NONE,* [Family Provider] - in less than 1 week
Prescriptions:
New
folic acid 1 mg Tablet
1 mg PO DAILY Qty: 0 0RF
thiamine HCl (vitamin B1) 100 mg Tablet
100 mg PO BID Qty: 0 0RF
Continued
metformin 500 mg Tablet
500 mg PO BIDWMEAL
topiramate [Topamax] 200 mg Tablet
200 mg PO BID
Wellbutrin SR
Discharge Orders:
Discharge Patient (As Directed); Ordered 02/10/24
Ordered By: Marquise Ellison
Discharge Date and Time
Discharge Date/Time: 02/10/24 15:45
Print Language: L[place]
== END 2024-02-10 15:45 | disposition left against medical advice (07) | DRG 894 ==
LOC: IMU 02:02
PROVIDERS: ADMITTING PHYSICIAN Hospitalist; ATTENDING PHYSICIAN Internal Medicine; EMERGENCY PHYSICIAN Student in an Organized Health Care Education/Training Program
DX: F10.139 Alcohol abuse with withdrawal, unspecified (principal); I5A Non-ischemic myocardial injury (non-traumatic); Z59.00 Homelessness unspecified; Z53.29 Procedure and treatment not carried out because of patient's decision for other reasons; G43.909 Migraine, unspecified, not intractable, without status migrainosus; F10.129 Alcohol abuse with intoxication, unspecified; E11.40 Type 2 diabetes mellitus with diabetic neuropathy, unspecified; E66.9 Obesity, unspecified; Z68.31 Body mass index [BMI] 31.0-31.9, adult; R56.9 Unspecified convulsions; F17.210 Nicotine dependence, cigarettes, uncomplicated; F31.9 Bipolar disorder, unspecified; Z79.84 Long term (current) use of oral hypoglycemic drugs; Y90.6 Blood alcohol level of 120-199 mg/100 ml
CPT/HCPCS: 70450; 80048; 80053; 80076; 80306; 80307; 81003; 82077; 82962; 83036; 83735; 84100; 84439; 84443; 84484; 85025; 85027; 85610; 85730; 93005; 97163; 99285

== ENCOUNTER 2024-07-21 17:35 | Emergency (ER) | payer OTHER, SELFPAY ==
[2024-07-21 17:48] VITALS: BP 112/79; BMI 31.2
[2024-07-21 17:50] VITALS: BP 112/79
[2024-07-21 18:00] VITALS: BP 104/72
[2024-07-21 18:25] LABS: % Basophils 1.1 % (0-2); % Eosinophils 2.4 % (0-6); % Immature Granulocytes 0.4 % (0-0.5); % Lymphocytes 31.8 % (20.5-51.1); % Monocytes 7.4 % (1.7-9.3); % Neutrophils 56.9 % (42.2-75.2); Absolute Basophils 0.1 10^3/uL (0-0.2); Absolute Eosinophils 0.2 10^3/uL (0-0.7); Absolute Lymphocytes 2.7 10^3/uL (1.2-3.4); Absolute Monocytes 0.6 10^3/uL (0.1-0.6); Absolute Neutrophils 4.9 10^3/uL (1.4-6.5); Hematocrit 40.1 % (37.0-47.0); Hemoglobin 13.2 g/dL (12.0-16.0); Mean Corp Hgb Conc. 32.9 g/dL (33.0-37.0); Mean Corpuscular Hgb 27.6 pg (27.0-31.0); Mean Corpuscular Volume 83.9 fL (81.0-99.0); Mean Platelet Volume 10.2 fL (7.4-10.4); Nucleated Red Blood Cells % 0 %; Platelet Count 349 10^3/uL (130-400); Red Blood Cell Count 4.78 10^6/uL (4.20-5.40); Red Cell Dist. Width 15.1 % (11.5-14.5); White Blood Cell Count 8.5 10^3/uL (4.8-10.8)
[2024-07-21 18:40] LABS: Blood Urea Nitrogen 14 mg/dl (7-17); Calcium 9.8 mg/dl (8.4-10.2); Carbon Dioxide 27 mmol/L (22-30); Chloride 103 mmol/L (98-107); Estimated Creatinine Clearance 105 ml/min; Glucose 102 mg/dl (70-99); Sodium 139 mmol/L (135-145); eGFR > 60.00
[2024-07-21 18:51] LABS: Troponin I < 0.012 ng/ml
[2024-07-21 19:00] VITALS: BP 104/68
--- NOTE | 2024-07-21 19:21 | ED.GENMED ---
History of Present Illness
General
Chief Complaint: Chest Pain
Time Seen by Provider: 07/21/24 18:16
History of Present Illness
History of Present Illness:
58-year-old female presents to the emergency department with [facility] officers for evaluation of chest pain. Patient indicates that she has had chest pain ongoing for the past several months, feels as though it is related
to anxiety. Pain seems to come and go randomly without obvious provocation. She also notes that she is having frequent falls over the past 2 months and feels as though she needs to use a walker for ambulation. Lastly she notes she has a history
of a DVT and was previously receiving Lovenox injections however has not had this in 1 week however states this chest pain has been ongoing for much longer but in that timeframe
Past History
Past History
ED Past Medical History: NIDDM
ED Past Surgical History: Cholecystectomy and
Social History
Tobacco: Non-smoker
Alcohol: Daily
Review of Systems
Review of Systems
Allergies reviewed?: Yes
All Other Systems: ROS reviewed and negative except as documented in HPI and ROS
Phy Exam
Physical Exam
Physical Exam:
GEN: Well appearing, NAD, WDWN
HEENT: Oral mucosa moist, no scleral icterus
Cardiac: Regular rate and rhythm, no murmurs
Lung: No respiratory distress, no tachypnea
MSK: No gross deformity or injuries
Skin: Good color, no pallor or jaundice, no rashes
Neuro: AO x3, moves all extremities freely; no lower extremity weakness noted
Psych: Calm, cooperative
Scores
Heart Score for Chest Pain Patients
STEMI patient?: No
History: Slightly or Non-Suspicious
ECG: Normal
Age: >45 - <65 years
Risk Factors: >/= 3 Risk Factors or History of CAD
Troponin: </= Normal Limit
Heart Score for Chest Pain Patients: 3
Heart Score Risk: 2.5% MACE over next 6 weeks
Course
Orders/Labs/Results
Orders:
Orders
07/21/24 17:46
EKG [Electrocardiogram (*1)] Urgent
Reason for Study: Chest Pain
EKG- Treatment ONCE
07/21/24 18:14
Basic Metabolic Panel Urgent
Complete Blood Count/With Diff Urgent
Troponin I Urgent
07/21/24 19:02
EKG [Electrocardiogram (*1)] Urgent
Reason for Study: Chest Pain
07/21/24 19:03
EKG- Treatment ONCE
07/21/24 19:20
CT Head W/o Iv Contrast Urgent
Comment:
Reason For Exam: abnormal gait
HydrOXYZINE [Atarax] 25 mg PO NOW STA
Abnormal Lab Results
07/21/24
18:14
MCHC 32.9 L g/dL
(33.0-37.0)
RDW 15.1 H %
(11.5-14.5)
Glucose 102 H mg/dl
(70-99)
07/21/24 18:14
07/21/24 18:14
Vital Signs
Initial and Last Documented VS:
Initial Vital Signs
Pulse Resp BP Pulse Ox
89 18 112/79 96
07/21/24 17:48 07/21/24 17:48 07/21/24 17:48 07/21/24 17:48
Last Documented Vital Signs
Pulse Resp BP Pulse Ox
83 20 106/64 95
07/21/24 20:45 07/21/24 20:45 07/21/24 20:00 07/21/24 20:45
MDM/Problems Addressed
MDM/Problems Addressed:
Chest pain is most likely anxiety mediated, no obvious exertional component to it to suggest ACS, EKG and troponin reassuring. Discharged into the care of correctional officers
*Critical Care Note
Total Time (30-74mins, 75-104mins- exclusive of procedures): Not Applicable
ED Attending Note
-
Portions of this chart may have been created with voice recognition software.� Occasional wrong word or��sound alike� substitutions may have occurred due to the inherent limitations of voice recognition software.
Discharge Plan
Departure
Patient Disposition: Correction
Date of Disposition: 07/21/24
Time of Disposition: 20:44
Discharge Problem:
Atypical chest pain, Frequent falls
Instructions: Chest Pain That Is Not Caused by the Heart (DC)
Prescriptions:
No Action
metformin 500 mg Tablet
500 mg PO BIDWMEAL
topiramate [Topamax] 200 mg Tablet
200 mg PO BID
Wellbutrin SR
Referrals:
[facility] [Family Provider] -
Interventions
Interventions:
*Risk Screen - Suicide Last Done: 07/21/24 17:48
*General Assessment Last Done: 07/21/24 18:00
*Neglect/Abuse Screening Last Done: 07/21/24 17:48
ED- Fall Risk Assessment Last Done: 07/21/24 17:48
*ED COVID-19 Vaccine History Last Done: 07/21/24 17:48
*Nursing Disposition Last Done: 07/21/24 21:21
ED- Cardiac Assessment Last Done: 07/21/24 17:48
Discharge Date and Time
Discharge Date/Time: 07/21/24 21:24
Print Language: KOREAN
[2024-07-21] MEDS: ATARAX 25 MG PO (19:54)
[2024-07-21 20:00] VITALS: BP 106/64
== END 2024-07-21 21:24 ==
LOC: EMR 17:35
PROVIDERS: EMERGENCY PHYSICIAN Student in an Organized Health Care Education/Training Program
DX: R07.89 Other chest pain (principal); F41.9 Anxiety disorder, unspecified; E11.9 Type 2 diabetes mellitus without complications; I25.10 Atherosclerotic heart disease of native coronary artery without angina pectoris; R29.6 Repeated falls; Z90.49 Acquired absence of other specified parts of digestive tract
CPT/HCPCS: 99284; 70450; 80048; 84484; 85025; 93005